=== PATIENT | female | born 1955 | race Caucasian/White ===

== ENCOUNTER 2021-10-22 19:41 | Observation (INO) | payer MEDICARE ==
[2021-10-22] MEDS ORDERED: BABY ASPIRIN 81 MG CHEW PO ONE (20:09)
[2021-10-22] MEDS ORDERED: NITRO-BID 2% UD PACKETS TOP ONE (20:10)
[2021-10-22] MEDS ORDERED: NITRO-BID 2% UD PACKETS ONE (20:15)
--- NOTE | 2021-10-22 20:25 | ERPHSYRPT ---
- History of Present Illness Time Seen by Provider: 10/22/21 19:50 Historian: patient Exam Limitations: no limitations Patient Subjective Stated Complaint: "My chest hurts." Triage Nursing Assessment: 65 y/o obese white female with PMH significant for hypothyroidims, "leaky valves," GERD, and HTN. Reported acute onset of chest pain while at rest on 10/22/21 at 1800. Pain described as left sided and dull/heavy in nature with radiation to the back between her shoulder blades. Reported associated dizziness, nausea without vomiting, and slight dyspnea. Denied any near syncopal episodes, cold sweats, or visual disturbances. Patient stated, "I just don't feel right.". Pupils 3mm bilateral. Neck supple without JVD. Symmetrical chest expansion. heart tones S1/S2 RRR without extra sounds. Lungs vesicular with adequate airflow. Abdomen obeses non-distended, non- surgical, and without peritoneal signs. No palpable organomegaly or pulsatile masses. +1 non-pitting dependent edema. Bilateral peripheral pulses +2. Physician History: Patient is a 65-year-old female presents to our ED with complaints of chest pain that started approximately 6 PM. Patient has a cardiac history. Patient states she self administered nitroglycerin sublingual at approximately 1830 and 1910. Symptoms relieved slightly. Patient's chest pain described as a dull heaviness that is constant. Pain tends to radiate towards her back between her scapula. Pain is associated with dizziness and nausea no vomiting. Symptoms are constant. Symptoms are moderate in intensity. Patient is experiencing symptoms at rest. No significant improving factors. Patient voices no other complaints or concerns at this time. Timing/Duration: today Activities at Onset: rest Quality: aching Location: substernal Chest Pain Radiation: back Severity of Pain-Max: moderate Severity of Pain-Current: mild Modifying Factors: Improves With: nothing Associated Symptoms: dizziness Prior Chest Pain/Cardiac Workup: no prior chest pain Nitro Today/Relief: 0.4 mg x 2 Aspirin Treatment Today: no aspirin today Allergies/Adverse Reactions: hydrocodone [From [facility]] Adverse Reaction (Verified 10/22/21 19:43) Home Medications: Aspirin EC 81 mg [Ecotrin 81 mg] 81 mg PO DAILY 11/23/12 [History] Levothyroxine Sodium 112 Mcg [Synthroid 112 Mcg] 88 mcg PO DAILY 11/23/12 [History] Simvastatin 20Mg [Zocor 20Mg] 20 mg PO DAILY 11/23/12 [History] Duloxetine HCl 60 mg PO DAILY 10/22/21 [History] Metoprolol Succinate 50 mg PO DAILY 10/22/21 [History] Pregabalin 500 mg PO DAILY 10/22/21 [History] Trazodone HCl 100 mg PO HS 10/22/21 [History] Hyoscyamine Sulfate 0.125 mg [Anaspaz 0.125 mg] 0.125 mg PO DAILY PRN PRN 10/23/21 [History] PANTOPRAZOLE 40 mg Tablet [Protonix 40MG Tablet] 40 mg PO DAILY 10/23/21 [History] Hx Tetanus, Diphtheria Vaccination/Date Given: No Hx Influenza Vaccination/Date Given: (fall 2011) Hx Pneumococcal Vaccination/Date Given: No Travel Risk - International Travel Have you traveled outside of the country in past 3 weeks: No - Coronavirus Screening Are you exhibiting any of the following symptoms?: No Close contact with a COVID-19 positive Pt in past 14-21 Days: No - Vaccine Status Have you recieved a Covid-19 vaccination: Yes [employer]: [employer] - Vaccination Dates Date of 2cond Vaccination (if applicable): 12/20/20 - Review of Systems Constitutional: No Symptoms, No Fever, No Chills Eyes: No Symptoms Ears, Nose, & Throat: No Symptoms Respiratory: No Symptoms, No Cough, No Dyspnea Cardiac: No Symptoms, No Chest Pain, No Edema, No Syncope Abdominal/Gastrointestinal: No Symptoms, No Abdominal Pain, No Nausea, No Vomiting, No Diarrhea Genitourinary Symptoms: No Symptoms, No Dysuria Musculoskeletal: No Symptoms, No Back Pain, No Neck Pain Skin: No Symptoms, No Rash Neurological: No Symptoms, No Dizziness, No Focal Weakness, No Sensory Changes Psychological: No Symptoms Endocrine: No Symptoms Hematologic/Lymphatic: No Symptoms Immunological/Allergic: No Symptoms All Other Systems: Reviewed and Negative - Past Medical History Pertinent Past Medical History: No Neurological History: No Pertinent History ENT History: No Pertinent History Cardiac History: Hypertension, Other Respiratory History: No Pertinent History Endocrine Medical History: Hypothyroidism Musculoskeletal History: Other GI Medical History: GERD, Gallbladder Disease History: No Pertinent History Psycho-Social History: Anxiety, Depression Female Reproductive Disorders: Fibroids Other Medical History: spinal stenosis,cardiac leaky valve - Past Surgical History Past Surgical History: Yes Neuro Surgical History: No Pertinent History Cardiac: Cardiac Catheterization Respiratory: No Pertinent History Gastrointestinal: Cholecystectomy Genitourinary: No Pertinent History Musculoskeletal: Orthopedic Surgery Female Surgical History: Hysterectomy, Tubal Ligation Other Surgical History: back surgery 2012-states S1-S5 vertebrae has "nuts and bolts", EGD,Barium swallow,test on panreas in [facility], [facility] spinal stenosi s,hiatel hernia,leaky heart valve and graves disease, colonoscopy 2013 - Social History Smoking Status: Never smoker Exposure to second hand smoke: No Drug Use: none Patient Lives Alone: Yes - Female History Hx Now: No - Nursing Vital Signs Nursing Vital Signs: Initial Vital Signs Temperature 98.7 F 10/22/21 19:41 Pulse Rate 68 10/22/21 19:41 Respiratory Rate 20 10/22/21 19:41 Blood Pressure 148/76 10/22/21 19:41 O2 Sat by Pulse Oximetry 97 10/22/21 19:41 Pain Scale Pain Intensity 2 - Physical Exam General Appearance: no apparent distress, alert Eye Exam: PERRL/EOMI, eyes nml inspection Ears, Nose, Throat Exam: normal ENT inspection, TMs normal, pharynx normal, moist mucous membranes Neck Exam: normal inspection, non-tender, supple, full range of motion Respiratory Exam: normal breath sounds, lungs clear, airway intact, No respiratory distress Cardiovascular Exam: regular rate/rhythm, normal heart sounds, normal peripheral pulses Gastrointestinal/Abdomen Exam: soft, No tenderness, No mass Back Exam: normal inspection, normal range of motion, No CVA tenderness, No vertebral tenderness Extremity Exam: normal inspection, normal range of motion Neurologic Exam: alert, oriented x 3, cooperative, normal mood/affect, sensation nml, No motor deficits Skin Exam: normal color, warm, dry Lymphatic Exam: No adenopathy SpO2 Interpretation: normal SpO2: 98 O2 Delivery: Room Air - Course Nursing assessment & vital signs reviewed: Yes EKG Interpreted by Me: RATE (68), Sinus Rhythm, NORMAL AXIS, NORMAL INTERVALS - Radiology Exams Chest X-ray Interpretation: Interpreted by me (Clear lung calderon. Normal cardiac silhouette. Intact bony thorax) Ordered Tests: Active Orders 24 hr Category Date Time Status Bedrest with BRP/BSC ROUTINE Activity 10/23/21 01:03 Active [place] Singer STAT Care 10/22/21 20:08 Completed Code Status Order ROUTINE Care 10/23/21 01:03 Active EKG-ER Only STAT Care 10/22/21 20:07 Completed IV Care Q6H Care 10/23/21 01:03 Active IV Insertion STAT Care 10/22/21 20:07 Completed Implement Chest Pain Pathway ROUTINE Care 10/23/21 01:03 Active Pulse Oximetry (ED) STAT Care 10/22/21 20:07 Completed Nolan Kulkarni, Apply ROUTINE Care 10/23/21 01:03 Active Telemetry q6h Care 10/23/21 01:03 Active Weight,Daily 0600 Care 10/23/21 01:03 Active CHEST 1 VIEW (PORTABLE) Stat Exams 10/22/21 20:13 Taken CBC W DIFF Stat Lab 10/22/21 20:07 Completed CMP Stat Lab 10/22/21 20:07 Completed LIPID PROFILE AM.LAB Lab 10/23/21 05:20 Received NT PRO BNP Stat Lab 10/22/21 20:07 Completed TROPONIN Q3H Lab 10/22/21 20:07 Completed TROPONIN Q3H Lab 10/22/21 22:45 Completed TROPONIN Q3H Lab 10/23/21 02:45 Completed TROPONIN Q3H Lab 10/23/21 05:20 Completed TROPONIN Q3H Lab 10/23/21 08:15 Ordered Transfer Order Routine Transfer 10/23/21 Completed Medication Summary Generic Name Dose Route Start Last Admin Trade Name Freq PRN Reason Stop Dose Admin Acetaminophen 650 mg 10/23/21 01:03 10/23/21 01:36 Acetaminophen 325 Mg Tablet PO 11/22/21 01:02 650 mg Q4H PRN PRN Administration PAIN AND/OR FEVER Al Hydrox/Mg Hydrox/Simethicone 30 ml 10/23/21 01:03 Mag Hydrox/Al Hydrox/Simeth 30 Ml Udcup PO 11/22/21 01:02 Q4H PRN PRN INDIGESTION Magnesium Hydroxide 30 - 60 ml 10/23/21 01:03 Magnesium Hydroxide 30 Ml Udcup PO 11/22/21 01:02 QDP PRN CONSTIPATION Ondansetron HCl 4 mg 10/23/21 01:03 Ondansetron Hcl 4 Mg/2 Ml Vial IV 11/22/21 01:02 Q4H PRN PRN NAUSEA/VOMITING Senna/Docusate Sodium 2 udtab 10/23/21 01:03 Senna/Docusate Sodium 1 Udtab Tablet PO 11/22/21 01:02 BID PRN PRN CONSTIPATION Discontinued Medications Generic Name Dose Route Start Last Admin Trade Name Collinq PRN Reason Stop Dose Admin Acetaminophen 975 mg 10/22/21 23:11 10/22/21 23:16 Acetaminophen 325 Mg Tablet PO 10/22/21 23:12 975 mg STAT STA Administration Acetaminophen Confirm 10/22/21 23:16 Acetaminophen 325 Mg Tablet Administered 10/22/21 23:17 Dose 975 mg .ROUTE .STK-MED ONE Aspirin 324 mg 10/22/21 20:09 10/22/21 20:12 Aspirin 81 Mg Tab.Chew PO 10/22/21 20:10 324 mg STAT ONE Administration Nitroglycerin 1 gm 10/22/21 20:10 10/22/21 20:16 Nitroglycerin 1 Gm Packet TOP 10/22/21 20:11 1 gm STAT ONE Administration Nitroglycerin Confirm 10/22/21 20:15 Nitroglycerin 1 Gm Packet Administered 10/22/21 20:16 Dose 1 gm .ROUTE .STK-MED ONE Lab/Rad Data: Laboratory Result Diagrams 10/22/21 20:07 10/22/21 20:07 Laboratory Results 10/22/21 10/22/21 10/22/21 Range/Units 22:52 22:45 20:07 WBC (4.0-10.5) K/mm3 RBC (4.1-5.4) M/mm3 Hgb (12.0-16.0) gm/dl Hct (35-47) % MCV (78-100) fl MCH (26-32) pg MCHC (32-36) g/dl RDW (11.5-14.0) % Plt Count (150-450) K/mm3 MPV (7.5-11.0) fl Gran % (36.0-66.0) % Eos # (Auto) (0-0.5) Absolute Lymphs (auto) (1.0-4.6) Absolute Monos (auto) (0.0-1.3) Lymphocytes % (24.0-44.0) % Monocytes % (0.0-12.0) % Eosinophils % (0.00-5.0) % Basophils % (0.0-0.4) % Absolute Granulocytes (1.4-6.9) Basophils # (0-0.4) Sodium (137-145) mmol/L Potassium (3.5-5.1) mmol/L Chloride (98-107) mmol/L Carbon Dioxide (22-30) mmol/L Anion Gap (5-15) MEQ/L BUN (7-17) mg/dL Creatinine (0.52-1.04) mg/dL Estimated GFR ML/MIN Glucose (74-106) mg/dL Calcium (8.4-10.2) mg/dL Total Bilirubin (0.2-1.3) mg/dL AST (14-36) U/L ALT (0-35) U/L Alkaline Phosphatase (38-126) U/L Troponin I < 0.012 < 0.012 (0.000-0.034) ng/mL NT-Pro-B Natriuret Pep (0-900) pg/mL Serum Total Protein (6.3-8.2) g/dL Albumin (3.5-5.0) g/dL Influenza Type A Ag NEGATIVE (NEGATIVE) Influenza Type B Ag NEGATIVE (NEGATIVE) RSV (PCR) NEGATIVE (Negative) SARS-CoV-2 (PCR) NEGATIVE (NEGATIVE) 10/22/21 10/22/21 Range/Units 20:07 20:07 WBC 7.8 (4.0-10.5) K/mm3 RBC 3.84 L (4.1-5.4) M/mm3 Hgb 12.1 (12.0-16.0) gm/dl Hct 36.9 (35-47) % MCV 96.1 (78-100) fl MCH 31.5 (26-32) pg MCHC 32.8 (32-36) g/dl RDW 14.0 (11.5-14.0) % Plt Count 205 (150-450) K/mm3 MPV 12.7 H (7.5-11.0) fl Gran % 47.2 (36.0-66.0) % Eos # (Auto) 0.17 (0-0.5) Absolute Lymphs (auto) 3.28 (1.0-4.6) Absolute Monos (auto) 0.61 (0.0-1.3) Lymphocytes % 42.2 (24.0-44.0) % Monocytes % 7.9 (0.0-12.0) % Eosinophils % 2.2 (0.00-5.0) % Basophils % 0.5 (0.0-0.4) % Absolute Granulocytes 3.67 (1.4-6.9) Basophils # 0.04 (0-0.4) Sodium 139 (137-145) mmol/L Potassium 3.5 (3.5-5.1) mmol/L Chloride 103 (98-107) mmol/L Carbon Dioxide 24 (22-30) mmol/L Anion Gap 16.3 H (5-15) MEQ/L BUN 15 (7-17) mg/dL Creatinine 0.81 (0.52-1.04) mg/dL Estimated GFR > 60.0 ML/MIN Glucose 122 H (74-106) mg/dL Calcium 9.3 (8.4-10.2) mg/dL Total Bilirubin 0.40 (0.2-1.3) mg/dL AST 21 (14-36) U/L ALT 17 (0-35) U/L Alkaline Phosphatase 94 (38-126) U/L Troponin I (0.000-0.034) ng/mL NT-Pro-B Natriuret Pep 209 (0-900) pg/mL Serum Total Protein 6.7 (6.3-8.2) g/dL Albumin 4.2 (3.5-5.0) g/dL Influenza Type A Ag (NEGATIVE) Influenza Type B Ag (NEGATIVE) RSV (PCR) (Negative) SARS-CoV-2 (PCR) (NEGATIVE) - Progress Progress: improved Air Movement: good Progress Note: Patient reassessed. She is well. We will admit patient for cardiac rule out. Case discussed with Dr. García who accepts admission to observation. Plan of care discussed with patient. She agrees to admission [facility] for further evaluation and treatment. Portions of this note were created with voice recognition technology. There may be grammatical, spelling, punctuation or sound alike errors 10/23/21 06:53 Blood Culture(s) Obtained: No Antibiotics given: No Discussed with DrSruthi: Sasha Counseled pt/family regarding: lab results, diagnosis, rad results - Departure Departure Disposition: Observation Clinical Impression: ACS (acute coronary syndrome), Chest pain, Abnormal ECG Condition: Stable Critical Care Time: No
[2021-10-22 20:27] LABS: Absolute Neutrophil Ct (ANC) 3.67 (1.4-6.9); Basophil (Absolute #) 0.04 (0-0.4); Eosinophil % 2.2 % (0.00-5.0); Eosinophil (Absolute #) 0.17 (0-0.5); Hematocrit 36.9 % (35-47); Hemoglobin 12.1 gm/dl (12.0-16.0); Lymphocyte (Absolute #) 3.28 (1.0-4.6); Lymphocytes % 42.2 % (24.0-44.0); Mean Cell Volume 96.1 fl (78-100); Mean Corpuscular Hemoglobin 31.5 pg (26-32); Mean Corpuscular Hgb Concent. 32.8 g/dl (32-36); Mean Platelet Volume 12.7 fl (7.5-11.0); Monocyte (Absolute #) 0.61 (0.0-1.3); Monocytes % 7.9 % (0.0-12.0); Neutrophil % 47.2 % (36.0-66.0); Platelet Count 205 K/mm3 (150-450); Red Blood Count 3.84 M/mm3 (4.1-5.4); White Blood Count 7.8 K/mm3 (4.0-10.5)
[2021-10-22 20:46] LABS: ALBUMIN 4.2 g/dL (3.5-5.0); ALKALINE PHOSPHATASE 94 U/L (38-126); ANION GAP 16.3 MEQ/L (5-15); BLOOD UREA NITROGEN 15 mg/dL (7-17); CHLORIDE 103 mmol/L (98-107); Calcium 9.3 mg/dL (8.4-10.2); Carbon Dioxide 24 mmol/L (22-30); Creatinine 1 0.81 mg/dL (0.52-1.04); EST GLOMERULAR FILTRATION RATE > 60.0 ML/MIN; Glucose 122 mg/dL (74-106); NT PRO BNP 209 pg/mL (0-900); Potassium 3.5 mmol/L (3.5-5.1); SGOT/AST 21 U/L (14-36); SGPT/ALT 17 U/L (0-35); SODIUM 139 mmol/L (137-145); Total Protein 6.7 g/dL (6.3-8.2)
[2021-10-22] MEDS ORDERED: TYLENOL 325 MG PO STA (23:11)
[2021-10-22] MEDS ORDERED: TYLENOL 325 MG ONE (23:16)
[2021-10-22 23:31] LABS: INFLUENZA A NEGATIVE (NEGATIVE); INFLUENZA B NEGATIVE (NEGATIVE); RESPIRATORY SYNCTIAL VIRUS NEGATIVE (Negative); SARS-CoV-2 Xpert Express NEGATIVE (NEGATIVE)
[2021-10-23] MEDS ORDERED: Senokot-S Tablet PO PRN (01:03)
[2021-10-23] MEDS ORDERED: TYLENOL 325 MG PO PRN (01:03)
[2021-10-23] MEDS ORDERED: Zofran 4 MG/2 ML VIAL IV PRN (01:03)
[2021-10-23] MEDS ORDERED: MILK OF MAGNESIA 30 ML PO PRN (01:03)
[2021-10-23] MEDS ORDERED: MAALOX ES 30 ML UNIT DOSE PO PRN (01:03)
[2021-10-23 06:50] LABS: Risk Ratio 3.2
--- NOTE | 2021-10-23 08:46 | XRAY ---
Indication: Chest pain. Comparison: May 19, 2013. Portable chest remains clear. Heart not enlarged. Bony thorax intact again with mild osteopenia, minimal degenerative changes, and lower cervical fusion hardware. No new/acute findings.
--- NOTE | 2021-10-23 09:14 | PCM.SSS ---
History of Present Illness - Chief Complaint Chief Complaint: chest pain History of Present Illness: is a 65 year old female with no local physician, she receives primary care from [facility] and follows with Dr Olive Viramontes for "2 leaky heart valves". She developed acute chest pain, substernal and dull radiating to her back at rest last night, she had dizziness and nausea associated with this pain, there was improvement with nitro. she denies history of [place], no stents and states her last stress test was "a long time ago". She has no chest pain on evaluation this morning, was pain free overnight with a nitro patch which has been removed at this point. She has a history of hyperlipidemia and htn. lifelong nonsmoker. - Review of Systems Constitutional: No Fever, No Chills Respiratory: No Cough, No Short Of Breath Cardiac: Chest Pain Abdominal/Gastrointestinal: No Abdominal Pain, No Nausea, No Vomiting, No Diarrhea Genitourinary Symptoms: No Dysuria Skin: No Rash All Other Systems: Reviewed and Negative Medications & Allergies Home Medications: Home Medication List Aspirin EC 81 mg [Ecotrin 81 mg] 81 mg PO DAILY 11/23/12 [History Confirmed 10/23/21] Levothyroxine Sodium 112 Mcg [Synthroid 112 Mcg] 88 mcg PO DAILY 11/23/12 [History Confirmed 10/23/21] Simvastatin 20Mg [Zocor 20Mg] 20 mg PO DAILY 11/23/12 [History Confirmed 10/23/21] Duloxetine HCl 60 mg PO DAILY 10/22/21 [History Confirmed 10/23/21] Metoprolol Succinate 50 mg PO DAILY 10/22/21 [History Confirmed 10/23/21] Pregabalin 500 mg PO DAILY 10/22/21 [History Confirmed 10/23/21] Trazodone HCl 100 mg PO HS 10/22/21 [History Confirmed 10/23/21] Hyoscyamine Sulfate 0.125 mg [Anaspaz 0.125 mg] 0.125 mg PO DAILY PRN PRN 10/23/21 [History Confirmed 10/23/21] PANTOPRAZOLE 40 mg Tablet [Protonix 40MG Tablet] 40 mg PO DAILY 10/23/21 [History Confirmed 10/23/21] Allergies/Adverse Reactions: Allergies Allergy/AdvReac Type Severity Reaction Status Date / Time hydrocodone [From [place]] AdvReac Verified 10/22/21 19:43 - Past Medical History Past Medical History: No Neurological History: No Pertinent History ENT History: No Pertinent History Cardiac History: Hypertension, Other Respiratory History: No Pertinent History Endocrine Medical History: Hypothyroidism Musculoskelatal History: Other GI Medical History: GERD, Gallbladder Disease History: No Pertinent History Pyscho-Social History: Anxiety, Depression Reproductive Disorders: Fibroids Comment: spinal stenosis,cardiac leaky valve - Female History Are you now?: No - Past Surgical History Past Surgical History: Yes Neuro Surgical History: No Pertinent History Cardiac History: Cardiac Catheterization Respiratory Surgery: No Pertinent History GI Surgical History: Cholecystectomy Genitourinary Surgical Hx: No Pertinent History Musculskeletal Surgical Hx: Orthopedic Surgery Female Surgical History: Hysterectomy, Tubal Ligation Other Surgical History: back surgery 2012-states S1-S5 vertebrae has "nuts and bolts", EGD,Barium swallow,test on panreas in [facility], states spinal stenosis,hiatel hernia,leaky heart valve and graves disease, colonoscopy 2013 - Social History Smoking Status: Never smoker How long have you smoked: 2007 Exposure to second hand smoke: No Alcohol: None Drug Use: none - Physical Exam Vital Signs: Vital Signs - 24 hr Temp Pulse Pulse Resp BP Pulse Ox 10/23/21 07:41 98.4 F 56 L 16 115/56 94 L 10/23/21 06:55 98 10/23/21 04:00 97.7 F 62 16 109/58 96 10/23/21 01:07 97.6 F 60 12 117/61 95 10/23/21 00:05 61 12 107/69 94 L 10/22/21 23:00 67 16 112/59 96 10/22/21 22:05 81 16 127/90 94 L 10/22/21 21:00 66 14 132/67 97 10/22/21 20:41 65 12 134/71 95 10/22/21 20:07 98 10/22/21 19:41 98.7 F 68 67 20 148/76 97 General Appearance: no apparent distress, alert Neurologic Exam: alert, oriented x 3, cooperative, normal mood/affect, nml cerebellar function, nml station & gait, sensation nml, No motor deficits Respiratory Exam: normal breath sounds, lungs clear, No respiratory distress Cardiovascular Exam: regular rate/rhythm, normal heart sounds, normal peripheral pulses Gastrointestinal/Abdomen Exam: soft, normal bowel sounds, No tenderness, No mass Extremity Exam: normal inspection, normal range of motion, pelvis stable Skin Exam: normal color, warm, dry, No rash Results - Labs Lab/Micro Results: Lab Results-Last 24 Hours 10/22/21 10/22/21 10/22/21 Range/Units 20:07 20:07 20:07 WBC 7.8 (4.0-10.5) K/mm3 RBC 3.84 L (4.1-5.4) M/mm3 Hgb 12.1 (12.0-16.0) gm/dl Hct 36.9 (35-47) % MCV 96.1 (78-100) fl MCH 31.5 (26-32) pg MCHC 32.8 (32-36) g/dl RDW 14.0 (11.5-14.0) % Plt Count 205 (150-450) K/mm3 MPV 12.7 H (7.5-11.0) fl Gran % 47.2 (36.0-66.0) % Eos # (Auto) 0.17 (0-0.5) Absolute Lymphs (auto) 3.28 (1.0-4.6) Absolute Monos (auto) 0.61 (0.0-1.3) Lymphocytes % 42.2 (24.0-44.0) % Monocytes % 7.9 (0.0-12.0) % Eosinophils % 2.2 (0.00-5.0) % Basophils % 0.5 (0.0-0.4) % Absolute Granulocytes 3.67 (1.4-6.9) Basophils # 0.04 (0-0.4) Sodium 139 (137-145) mmol/L Potassium 3.5 (3.5-5.1) mmol/L Chloride 103 (98-107) mmol/L Carbon Dioxide 24 (22-30) mmol/L Anion Gap 16.3 H (5-15) MEQ/L BUN 15 (7-17) mg/dL Creatinine 0.81 (0.52-1.04) mg/dL Estimated GFR > 60.0 ML/MIN Glucose 122 H (74-106) mg/dL Calcium 9.3 (8.4-10.2) mg/dL Total Bilirubin 0.40 (0.2-1.3) mg/dL AST 21 (14-36) U/L ALT 17 (0-35) U/L Alkaline Phosphatase 94 (38-126) U/L Troponin I < 0.012 (0.000-0.034) ng/mL NT-Pro-B Natriuret Pep 209 (0-900) pg/mL Serum Total Protein 6.7 (6.3-8.2) g/dL Albumin 4.2 (3.5-5.0) g/dL Triglycerides (30-150) mg/dL Cholesterol (50-200) mg/dL LDL Cholesterol (30-100) mg/dL HDL Cholesterol (40-60) mg/dL Heart Disease Risk Ratio Influenza Type A Ag (NEGATIVE) Influenza Type B Ag (NEGATIVE) RSV (PCR) (Negative) SARS-CoV-2 (PCR) (NEGATIVE) 10/22/21 10/22/21 10/23/21 Range/Units 22:45 22:52 02:45 WBC (4.0-10.5) K/mm3 RBC (4.1-5.4) M/mm3 Hgb (12.0-16.0) gm/dl Hct (35-47) % MCV (78-100) fl MCH (26-32) pg MCHC (32-36) g/dl RDW (11.5-14.0) % Plt Count (150-450) K/mm3 MPV (7.5-11.0) fl Gran % (36.0-66.0) % Eos # (Auto) (0-0.5) Absolute Lymphs (auto) (1.0-4.6) Absolute Monos (auto) (0.0-1.3) Lymphocytes % (24.0-44.0) % Monocytes % (0.0-12.0) % Eosinophils % (0.00-5.0) % Basophils % (0.0-0.4) % Absolute Granulocytes (1.4-6.9) Basophils # (0-0.4) Sodium (137-145) mmol/L Potassium (3.5-5.1) mmol/L Chloride (98-107) mmol/L Carbon Dioxide (22-30) mmol/L Anion Gap (5-15) MEQ/L BUN (7-17) mg/dL Creatinine (0.52-1.04) mg/dL Estimated GFR ML/MIN Glucose (74-106) mg/dL Calcium (8.4-10.2) mg/dL Total Bilirubin (0.2-1.3) mg/dL AST (14-36) U/L ALT (0-35) U/L Alkaline Phosphatase (38-126) U/L Troponin I < 0.012 < 0.012 (0.000-0.034) ng/mL NT-Pro-B Natriuret Pep (0-900) pg/mL Serum Total Protein (6.3-8.2) g/dL Albumin (3.5-5.0) g/dL Triglycerides (30-150) mg/dL Cholesterol (50-200) mg/dL LDL Cholesterol (30-100) mg/dL HDL Cholesterol (40-60) mg/dL Heart Disease Risk Ratio Influenza Type A Ag NEGATIVE (NEGATIVE) Influenza Type B Ag NEGATIVE (NEGATIVE) RSV (PCR) NEGATIVE (Negative) SARS-CoV-2 (PCR) NEGATIVE (NEGATIVE) 10/23/21 10/23/21 10/23/21 Range/Units 05:20 05:20 08:11 WBC (4.0-10.5) K/mm3 RBC (4.1-5.4) M/mm3 Hgb (12.0-16.0) gm/dl Hct (35-47) % MCV (78-100) fl MCH (26-32) pg MCHC (32-36) g/dl RDW (11.5-14.0) % Plt Count (150-450) K/mm3 MPV (7.5-11.0) fl Gran % (36.0-66.0) % Eos # (Auto) (0-0.5) Absolute Lymphs (auto) (1.0-4.6) Absolute Monos (auto) (0.0-1.3) Lymphocytes % (24.0-44.0) % Monocytes % (0.0-12.0) % Eosinophils % (0.00-5.0) % Basophils % (0.0-0.4) % Absolute Granulocytes (1.4-6.9) Basophils # (0-0.4) Sodium (137-145) mmol/L Potassium (3.5-5.1) mmol/L Chloride (98-107) mmol/L Carbon Dioxide (22-30) mmol/L Anion Gap (5-15) MEQ/L BUN (7-17) mg/dL Creatinine (0.52-1.04) mg/dL Estimated GFR ML/MIN Glucose (74-106) mg/dL Calcium (8.4-10.2) mg/dL Total Bilirubin (0.2-1.3) mg/dL AST (14-36) U/L ALT (0-35) U/L Alkaline Phosphatase (38-126) U/L Troponin I < 0.012 < 0.012 (0.000-0.034) ng/mL NT-Pro-B Natriuret Pep (0-900) pg/mL Serum Total Protein (6.3-8.2) g/dL Albumin (3.5-5.0) g/dL Triglycerides 103 (30-150) mg/dL Cholesterol 133 (50-200) mg/dL LDL Cholesterol 60 (30-100) mg/dL HDL Cholesterol 42 (40-60) mg/dL Heart Disease Risk Ratio 3.2 Influenza Type A Ag (NEGATIVE) Influenza Type B Ag (NEGATIVE) RSV (PCR) (Negative) SARS-CoV-2 (PCR) (NEGATIVE) - Radiology Impressions Radiology Exams & Impressions: Radiology Procedures Category Date Time Status CHEST 1 VIEW (PORTABLE) Stat Exams 10/22/21 20:13 Completed - Other Procedures and Tests Respiratory Therapy 10/24/21 05:00 EKG ROUTINE 10/25/21 05:00 EKG ROUTINE Assessment/Plan (1) Chest pain Current Visit: Yes Status: Acute Assessment & Plan: patient has some risk factors for CAD and history is concerning for angina. [place] has been ruled out, not a good historian but has had a previous cath so will consult her casino assistant manager at [facility] to help with history and if no immediate intervention consider lexiscan cardiolite stress test and discharge if ok with cardiology. continue aspirin and statin at this time, patient is on metoprolol as well so currently on appropriate medical therapy. Code(s): R07.9 - CHEST PAIN, UNSPECIFIED Hospital Summary - Vitals & Intake/Output Vital Signs: Vital Signs Temperature 98.4 F 10/23/21 07:41 Pulse Rate 56 L 10/23/21 07:41 Respiratory Rate 16 10/23/21 07:41 Blood Pressure 115/56 10/23/21 07:41 O2 Sat by Pulse Oximetry 94 L 10/23/21 07:41 Intake & Output: Intake & Output 10/20/21 10/21/21 10/22/21 10/23/21 11:59 11:59 11:59 11:59 Intake Total 200 Balance 200 Weight 104 kg - Lab Result Diagrams: 10/22/21 20:07 10/22/21 20:07 Lab Results-Last 24 Hrs: Lab Results-Last 24 Hours 10/22/21 10/22/21 10/22/21 Range/Units 20:07 20:07 20:07 WBC 7.8 (4.0-10.5) K/mm3 RBC 3.84 L (4.1-5.4) M/mm3 Hgb 12.1 (12.0-16.0) gm/dl Hct 36.9 (35-47) % MCV 96.1 (78-100) fl MCH 31.5 (26-32) pg MCHC 32.8 (32-36) g/dl RDW 14.0 (11.5-14.0) % Plt Count 205 (150-450) K/mm3 MPV 12.7 H (7.5-11.0) fl Gran % 47.2 (36.0-66.0) % Eos # (Auto) 0.17 (0-0.5) Absolute Lymphs (auto) 3.28 (1.0-4.6) Absolute Monos (auto) 0.61 (0.0-1.3) Lymphocytes % 42.2 (24.0-44.0) % Monocytes % 7.9 (0.0-12.0) % Eosinophils % 2.2 (0.00-5.0) % Basophils % 0.5 (0.0-0.4) % Absolute Granulocytes 3.67 (1.4-6.9) Basophils # 0.04 (0-0.4) Sodium 139 (137-145) mmol/L Potassium 3.5 (3.5-5.1) mmol/L Chloride 103 (98-107) mmol/L Carbon Dioxide 24 (22-30) mmol/L Anion Gap 16.3 H (5-15) MEQ/L BUN 15 (7-17) mg/dL Creatinine 0.81 (0.52-1.04) mg/dL Estimated GFR > 60.0 ML/MIN Glucose 122 H (74-106) mg/dL Calcium 9.3 (8.4-10.2) mg/dL Total Bilirubin 0.40 (0.2-1.3) mg/dL AST 21 (14-36) U/L ALT 17 (0-35) U/L Alkaline Phosphatase 94 (38-126) U/L Troponin I < 0.012 (0.000-0.034) ng/mL NT-Pro-B Natriuret Pep 209 (0-900) pg/mL Serum Total Protein 6.7 (6.3-8.2) g/dL Albumin 4.2 (3.5-5.0) g/dL Triglycerides (30-150) mg/dL Cholesterol (50-200) mg/dL LDL Cholesterol (30-100) mg/dL HDL Cholesterol (40-60) mg/dL Heart Disease Risk Ratio Influenza Type A Ag (NEGATIVE) Influenza Type B Ag (NEGATIVE) RSV (PCR) (Negative) SARS-CoV-2 (PCR) (NEGATIVE) 10/22/21 10/22/21 10/23/21 Range/Units 22:45 22:52 02:45 WBC (4.0-10.5) K/mm3 RBC (4.1-5.4) M/mm3 Hgb (12.0-16.0) gm/dl Hct (35-47) % MCV (78-100) fl MCH (26-32) pg MCHC (32-36) g/dl RDW (11.5-14.0) % Plt Count (150-450) K/mm3 MPV (7.5-11.0) fl Gran % (36.0-66.0) % Eos # (Auto) (0-0.5) Absolute Lymphs (auto) (1.0-4.6) Absolute Monos (auto) (0.0-1.3) Lymphocytes % (24.0-44.0) % Monocytes % (0.0-12.0) % Eosinophils % (0.00-5.0) % Basophils % (0.0-0.4) % Absolute Granulocytes (1.4-6.9) Basophils # (0-0.4) Sodium (137-145) mmol/L Potassium (3.5-5.1) mmol/L Chloride (98-107) mmol/L Carbon Dioxide (22-30) mmol/L Anion Gap (5-15) MEQ/L BUN (7-17) mg/dL Creatinine (0.52-1.04) mg/dL Estimated GFR ML/MIN Glucose (74-106) mg/dL Calcium (8.4-10.2) mg/dL Total Bilirubin (0.2-1.3) mg/dL AST (14-36) U/L ALT (0-35) U/L Alkaline Phosphatase (38-126) U/L Troponin I < 0.012 < 0.012 (0.000-0.034) ng/mL NT-Pro-B Natriuret Pep (0-900) pg/mL Serum Total Protein (6.3-8.2) g/dL Albumin (3.5-5.0) g/dL Triglycerides (30-150) mg/dL Cholesterol (50-200) mg/dL LDL Cholesterol (30-100) mg/dL HDL Cholesterol (40-60) mg/dL Heart Disease Risk Ratio Influenza Type A Ag NEGATIVE (NEGATIVE) Influenza Type B Ag NEGATIVE (NEGATIVE) RSV (PCR) NEGATIVE (Negative) SARS-CoV-2 (PCR) NEGATIVE (NEGATIVE) 10/23/21 10/23/21 10/23/21 Range/Units 05:20 05:20 08:11 WBC (4.0-10.5) K/mm3 RBC (4.1-5.4) M/mm3 Hgb (12.0-16.0) gm/dl Hct (35-47) % MCV (78-100) fl MCH (26-32) pg MCHC (32-36) g/dl RDW (11.5-14.0) % Plt Count (150-450) K/mm3 MPV (7.5-11.0) fl Gran % (36.0-66.0) % Eos # (Auto) (0-0.5) Absolute Lymphs (auto) (1.0-4.6) Absolute Monos (auto) (0.0-1.3) Lymphocytes % (24.0-44.0) % Monocytes % (0.0-12.0) % Eosinophils % (0.00-5.0) % Basophils % (0.0-0.4) % Absolute Granulocytes (1.4-6.9) Basophils # (0-0.4) Sodium (137-145) mmol/L Potassium (3.5-5.1) mmol/L Chloride (98-107) mmol/L Carbon Dioxide (22-30) mmol/L Anion Gap (5-15) MEQ/L BUN (7-17) mg/dL Creatinine (0.52-1.04) mg/dL Estimated GFR ML/MIN Glucose (74-106) mg/dL Calcium (8.4-10.2) mg/dL Total Bilirubin (0.2-1.3) mg/dL AST (14-36) U/L ALT (0-35) U/L Alkaline Phosphatase (38-126) U/L Troponin I < 0.012 < 0.012 (0.000-0.034) ng/mL NT-Pro-B Natriuret Pep (0-900) pg/mL Serum Total Protein (6.3-8.2) g/dL Albumin (3.5-5.0) g/dL Triglycerides 103 (30-150) mg/dL Cholesterol 133 (50-200) mg/dL LDL Cholesterol 60 (30-100) mg/dL HDL Cholesterol 42 (40-60) mg/dL Heart Disease Risk Ratio 3.2 Influenza Type A Ag (NEGATIVE) Influenza Type B Ag (NEGATIVE) RSV (PCR) (Negative) SARS-CoV-2 (PCR) (NEGATIVE) - Radiology Exams Ordered Rad Exams-Entire Visit: Radiology Procedures Category Date Time Status CHEST 1 VIEW (PORTABLE) Stat Exams 10/22/21 20:13 Completed - Procedures and Test Procedures and Tests throughout Hospitalization: Therapy Orders & Screens 10/23/21 04:00 EKG ROUTINE Comment: 10/24/21 05:00 EKG ROUTINE Comment: 10/25/21 05:00 EKG ROUTINE Comment: - Discharge Disposition: Home, Self-Care Condition: Stable Prescriptions: Continue Aspirin EC 81 mg [Ecotrin 81 mg] 81 mg PO DAILY Simvastatin 20Mg [Zocor 20Mg] 20 mg PO DAILY Levothyroxine Sodium 112 Mcg [Synthroid 112 Mcg] 88 mcg PO DAILY Metoprolol Succinate 50 mg PO DAILY Trazodone HCl 100 mg PO HS Duloxetine HCl 60 mg PO DAILY Pregabalin 500 mg PO DAILY PANTOPRAZOLE 40 mg Tablet [Protonix 40MG Tablet] 40 mg PO DAILY Hyoscyamine Sulfate 0.125 mg [Anaspaz 0.125 mg] 0.125 mg PO DAILY PRN PRN PRN Reason: IBS
[2021-10-23] MEDS ORDERED: ANASPAZ 0.125 MG PO PRN (10:15)
[2021-10-23] MEDS ORDERED: Lyrica 25 MG PO SCH (11:00)
[2021-10-23] MEDS ORDERED: ZOCOR 20MG PO SCH (11:00)
[2021-10-23] MEDS ORDERED: LYRICA 100MG PO SCH (11:00)
[2021-10-23] MEDS ORDERED: Cymbalta 30 MG Capsule PO SCH (11:00)
[2021-10-23] MEDS ORDERED: ECOTRIN 81 MG PO SCH (11:00)
[2021-10-23] MEDS ORDERED: Protonix 40MG Tablet PO SCH (11:00)
[2021-10-23] MEDS ORDERED: Toprol Xl 50 MG PO SCH (11:00)
[2021-10-23] MEDS ORDERED: SYNTHROID 88 MCG PO SCH (11:00)
[2021-10-23 15:47] VITALS: BP 146/73; PULSE 62; O2SAT 99
--- NOTE | 2021-10-23 16:10 | PCM.DCORD ---
- Discharge Disposition: Home, Self-Care Condition: Stable Prescriptions: New Nitroglycerin 0.4 mg SL Q5MIN PRN MR X 3 PRN #25 PRN Reason: Chest Pain Continue Aspirin EC 81 mg [Ecotrin 81 mg] 81 mg PO DAILY Simvastatin 20Mg [Zocor 20Mg] 20 mg PO DAILY Levothyroxine Sodium 112 Mcg [Synthroid 112 Mcg] 88 mcg PO DAILY Metoprolol Succinate 50 mg PO DAILY Trazodone HCl 100 mg PO HS Duloxetine HCl 60 mg PO DAILY Pregabalin 500 mg PO DAILY PANTOPRAZOLE 40 mg Tablet [Protonix 40MG Tablet] 40 mg PO DAILY Hyoscyamine Sulfate 0.125 mg [Anaspaz 0.125 mg] 0.125 mg PO DAILY PRN PRN PRN Reason: IBS Follow up with: LINA SNOW [CONSULTING PHYSICIAN] -
[2021-10-23] MEDS ORDERED: DESYREL 50 MG PO SCH (22:00)
[2021-10-23] MEDS ORDERED: NON-FORMULARY ITEM (Trazodone Hcl [Trazodone Hcl] 100 MG Tablet) PO SCH (22:00)
[2021-10-24] MEDS ORDERED: PREGABALIN 225 MG PO SCH (10:00)
[2021-10-24] MEDS ORDERED: SYNTHROID 112 MCG PO SCH (10:00)
[2021-10-24] MEDS ORDERED: NON-FORMULARY ITEM (Duloxetine Hcl [Duloxetine Hcl] 60 MG Capsule.Dr) PO SCH (10:00)
== END 2021-10-23 16:46 | disposition home or self-care (01) ==
LOC: ED 19:41 → MED SURG 10-23 00:55
PROVIDERS: ADMIT Family Medicine; ATTEND Family Medicine
DX: R07.9 Chest pain, unspecified (principal); I10 Essential (primary) hypertension; E78.5 Hyperlipidemia, unspecified; E03.9 Hypothyroidism, unspecified; Z79.899 Other long term (current) drug therapy; Z20.828 Contact with and (suspected) exposure to other viral communicable diseases
CPT/HCPCS: 0241U; 36000; 36415; 71045; 80053; 80061; 83721; 83880; 84484; 85025; 93005; 93041; 93268; 94760; 99285; G0378; A9270-GY

== ENCOUNTER 2024-04-14 11:23 | Day surgery (SDC) | payer MEDICARE ==
[2024-04-14] MEDS ORDERED: Xylocaine-Mpf 2% 5 Ml Vial IJ ONE (11:24)
[2024-04-14] MEDS ORDERED: Depo-Medrol 40 MG/ML IM ONE (11:24)
[2024-04-14] MEDS ORDERED: DIPRIVAN 200 MG/20 ML IV ONE (13:21)
[2024-04-14] MEDS ORDERED: Lactated Ringers 1,000 ML IV ONE (13:25)
--- NOTE | 2024-04-14 13:50 | XRAY ---
Indication: Bilateral L4-S1 MBB. Intraoperative fluoroscopy provided for 12 seconds. Single digital spot image submitted for interpretation demonstrates posterior needle tips projecting over the expected left and right L4-S1 nerve roots. Correlate with intraoperative findings/report. Incidental bilateral L3-L5 facet screws and L4-L5 laminectomy.
--- NOTE | 2024-04-14 14:10 | XRAY ---
12 seconds of fluoroscopy was used in surgery for a bilateral L4-S1 MBB.
== END 2024-04-14 13:50 | disposition home or self-care (01) ==
LOC: SDC-PAIN 11:23
PROVIDERS: ATTEND Psychiatry & Neurology Pain Medicine
DX: M47.816 Spondylosis without myelopathy or radiculopathy, lumbar region (principal)
CPT/HCPCS: 64493; 64494; 72020; 77002; J2704

== ENCOUNTER 2024-05-11 13:30 | Day surgery (SDC) | payer MEDICARE ==
[2024-05-11] MEDS ORDERED: Depo-Medrol 40 MG/ML IM ONE (13:31)
[2024-05-11] MEDS ORDERED: BUPIVACAINE 0.5% VIAL IJ ONE (13:31)
[2024-05-11] MEDS ORDERED: Lactated Ringers 1,000 ML IV ONE (14:38)
[2024-05-11] MEDS ORDERED: DIPRIVAN 200 MG/20 ML IV ONE (14:56)
--- NOTE | 2024-05-11 17:38 | XRAY ---
Indication: Bilateral L4-S1 MBB. Intraoperative fluoroscopy provided for 10 seconds. Single digital spot image submitted for interpretation demonstrates posterior needle tips projecting over the expected left and right L4-S1 nerve roots. Correlate with intraoperative findings/report. Incidental bilateral L3-L5 facet screws and L4-L5 laminectomy.
--- NOTE | 2024-05-11 17:44 | XRAY ---
10 seconds of fluoroscopy was used in surgery for a bilateral L4-S1 MBB.
== END 2024-05-11 15:20 | disposition home or self-care (01) ==
LOC: SDC-PAIN 13:30
PROVIDERS: ATTEND Psychiatry & Neurology Pain Medicine
DX: M47.816 Spondylosis without myelopathy or radiculopathy, lumbar region (principal)
CPT/HCPCS: 64493; 64494; 72020; 77002; J2704

== ENCOUNTER 2024-05-25 06:51 | Day surgery (SDC) | payer MEDICARE ==
[2024-05-25] MEDS ORDERED: Depo-Medrol 40 MG/ML IM ONE (06:52)
[2024-05-25] MEDS ORDERED: LIDOCAINE HCL 1% 50 MG/5 ML VL PF IJ ONE (06:52)
[2024-05-25] MEDS ORDERED: BUPIVACAINE 0.5% VIAL IJ ONE (06:52)
[2024-05-25] MEDS ORDERED: DIPRIVAN 200 MG/20 ML IV ONE (07:56)
[2024-05-25] MEDS ORDERED: Lactated Ringers 1,000 ML IV ONE (09:23)
--- NOTE | 2024-05-25 19:58 | XRAY ---
Indication: Right L4-S1 RFA Intraoperative fluoroscopy provided for 26 seconds. 3 digital spot image submitted for interpretation demonstrates posterior needle tips projecting over the expected right L4-S1 nerve roots. Correlate with intraoperative findings/report. Incidental bilateral L3-S1 facet screws.
--- NOTE | 2024-05-25 20:20 | XRAY ---
26 seconds of fluoroscopy was used in surgery for a right L4-S1 RFA.
== END 2024-05-25 08:35 ==
LOC: SDC-PAIN 06:51
PROVIDERS: ATTEND Psychiatry & Neurology Pain Medicine
DX: M47.816 Spondylosis without myelopathy or radiculopathy, lumbar region (principal)
CPT/HCPCS: 64635; 64636; 72100; 77002; J2001; J2704

== ENCOUNTER 2024-06-01 06:48 | Day surgery (SDC) | payer MEDICARE ==
[2024-06-01] MEDS ORDERED: Depo-Medrol 40 MG/ML IM ONE (06:49)
[2024-06-01] MEDS ORDERED: LIDOCAINE HCL 1% AMPUL 5 ML IJ ONE (06:49)
[2024-06-01] MEDS ORDERED: BUPIVACAINE 0.5% VIAL IJ ONE (06:49)
[2024-06-01] MEDS ORDERED: DIPRIVAN 200 MG/20 ML IV ONE (08:17)
[2024-06-01] MEDS ORDERED: Lactated Ringers 1,000 ML IV ONE (09:53)
--- NOTE | 2024-06-01 10:47 | XRAY ---
Indication: Left L4-S1 RFA. Intraoperative fluoroscopy provided for 21 seconds. 4 digital spot images submitted for interpretation demonstrates posterior needle tips projecting over the expected left L4-S1 nerve root. Correlate with intraoperative findings/report. Incidental bilateral L3-S1 facet screws.
--- NOTE | 2024-06-01 13:08 | XRAY ---
21 seconds of fluoroscopy was used in surgery for a left L4-S1 RFA.
== END 2024-06-01 08:50 | disposition home or self-care (01) ==
LOC: SDC-PAIN 06:48
PROVIDERS: ATTEND Psychiatry & Neurology Pain Medicine
DX: M47.816 Spondylosis without myelopathy or radiculopathy, lumbar region (principal)
CPT/HCPCS: 64635; 64636; 72100; 77002; J2704

== ENCOUNTER 2024-07-06 14:12 | Day surgery (SDC) | payer MEDICARE ==
[2024-07-06] MEDS ORDERED: BUPIVACAINE 0.5% VIAL IJ ONE (14:13)
[2024-07-06] MEDS ORDERED: LIDOCAINE HCL 1% AMPUL 5 ML IJ ONE (14:13)
[2024-07-06] MEDS ORDERED: Decadron 4 MG INJ IV ONE (14:13)
[2024-07-06] MEDS ORDERED: Depo-Medrol 40 MG/ML IM ONE (14:13)
[2024-07-06] MEDS ORDERED: DIPRIVAN 200 MG/20 ML IV ONE (16:07)
--- NOTE | 2024-07-06 17:02 | XRAY ---
Indication: Right SI joint and right piriformis injection. Intraoperative fluoroscopy provided for 18 seconds. 2 digital spot image submitted for interpretation demonstrates posterior needle tips projecting over right SI joint and right piriformis. Small amount of contrast injected for both needle tip placement. Correlate with intraoperative findings/report. Incidental incompletely visualized lower lumbar fusion screws.
--- NOTE | 2024-07-06 17:20 | XRAY ---
18 seconds of fluoroscopy was used in surgery for a right sacroiliac joint and piriformis injection.
== END 2024-07-06 16:31 | disposition home or self-care (01) ==
LOC: SDC-PAIN 14:12
PROVIDERS: ATTEND Psychiatry & Neurology Pain Medicine
DX: M46.1 Sacroiliitis, not elsewhere classified (principal); M79.18 Myalgia, other site
CPT/HCPCS: 20552; 72170; 77002; G0260; 27096; J1100; J2704; Q9966

== ENCOUNTER 2024-08-18 14:08 | Day surgery (SDC) | payer MEDICARE ==
[2024-08-18] MEDS ORDERED: Xylocaine-Mpf 2% 5 Ml Vial IJ ONE (14:09)
[2024-08-18] MEDS ORDERED: Decadron 4 MG INJ IV ONE (14:09)
[2024-08-18] MEDS ORDERED: DIPRIVAN 200 MG/20 ML IV ONE (15:57)
--- NOTE | 2024-08-18 19:36 | XRAY ---
Indication: Right C2-C4 MBB. Intraoperative fluoroscopy provided for 10 seconds. 2 digital spot images submitted for interpretation demonstrates posterior needle tips projecting over expected right C2-C4 nerve roots. Correlate with intraoperative findings/report. Incidental lower cervical fusion hardware
--- NOTE | 2024-08-19 09:07 | XRAY ---
10 seconds of fluoroscopy was used in surgery for a right C2-C4 MBB.
== END 2024-08-18 16:25 | disposition home or self-care (01) ==
LOC: SDC-PAIN 14:08
PROVIDERS: ATTEND Psychiatry & Neurology Pain Medicine
DX: M47.812 Spondylosis without myelopathy or radiculopathy, cervical region (principal)
CPT/HCPCS: 64490; 64491; 72040; 77002; J1100; J2704

== ENCOUNTER 2024-09-14 12:06 | Day surgery (SDC) | payer MEDICARE ==
[2024-09-14] MEDS ORDERED: propofoL IV ONE ×2 (13:57→14:10)
--- NOTE | 2024-09-14 15:13 | XRAY ---
Indication: Right C2-C4 MBB. Intraoperative fluoroscopy provided for 12 seconds. 2 digital spot images submitted for interpretation demonstrates posterior needle tips projecting over expected right C2-C4 nerve roots. Correlate with intraoperative findings/report. Incidental lower cervical fusion hardware.
--- NOTE | 2024-09-14 15:17 | XRAY ---
12 seconds of fluoroscopy was used in surgery for a right C2-C4 MBB.
== END 2024-09-14 14:35 | disposition home or self-care (01) ==
LOC: SDC-PAIN 12:06
PROVIDERS: ATTEND Psychiatry & Neurology Pain Medicine
DX: M47.812 Spondylosis without myelopathy or radiculopathy, cervical region (principal)
CPT/HCPCS: 64490; 64491; 72040; 77002; J2704

== ENCOUNTER 2024-10-12 06:50 | Day surgery (SDC) | payer MEDICARE ==
[2024-10-12] MEDS ORDERED: Lactated Ringers 500 ML IV ONE (07:57)
[2024-10-12] MEDS ORDERED: propofoL IV ONE (08:38)
--- NOTE | 2024-10-12 10:35 | XRAY ---
Indication: Left C2-C4 MBB. Intraoperative fluoroscopy provided for 15 seconds. 2 digital spot images submitted for interpretation demonstrates posterior needle tips projecting over expected left C2-C4 nerve roots. Correlate with intraoperative findings/report. Incidental lower cervical fusion hardware.
--- NOTE | 2024-10-12 12:02 | XRAY ---
15 seconds of fluoroscopy was used in surgery for a left C2-C4 MBB.
== END 2024-10-12 09:09 | disposition home or self-care (01) ==
LOC: SDC-PAIN 06:50
PROVIDERS: ATTEND Psychiatry & Neurology Pain Medicine
DX: M47.812 Spondylosis without myelopathy or radiculopathy, cervical region (principal)
CPT/HCPCS: 72040; 77002; J2704

== ENCOUNTER 2024-11-16 05:40 | Day surgery (SDC) | payer MEDICARE ==
[2024-11-16] MEDS ORDERED: Lactated Ringers 1,000 ML IV ONE (06:20)
[2024-11-16] MEDS ORDERED: CEFAZOLIN 2 GM/100 ML NaCl 2 GM/100 ML IVPB IV ONE (06:20)
[2024-11-16] MEDS: Transderm Scop 1.5MG Patch TOP PRN (06:29)
[2024-11-16] MEDS: TYLENOL EXTRA STRENGTH 500 MG PO ONE (06:31)
[2024-11-16] MEDS: Pepcid 20 MG PO ONE (06:31)
[2024-11-16] MEDS: celeBREX 100 MG PO ONE (06:31)
[2024-11-16] MEDS: CEFAZOLIN 2 GM/100 ML NaCl 2 GM/100 ML IVPB IV SCH (06:31)
[2024-11-16] MEDS: NEURONTIN PO ONE (06:31)
[2024-11-16] MEDS: Decadron 4 MG PO ONE (06:32)
[2024-11-16] MEDS: Lactated Ringers 1,000 ML IV SCH (06:32)
[2024-11-16 06:42] VITALS: RESP 16
[2024-11-16] MEDS ORDERED: SUBLIMAZE 100 MCG/2 ML ONE ×2 (07:12→10:31)
[2024-11-16] MEDS ORDERED: dexAMETHasone sodium phosphate ONE (07:12)
[2024-11-16] MEDS ORDERED: Xylocaine-Mpf 2% 5 Ml Vial ONE (07:12)
[2024-11-16] MEDS ORDERED: Zofran 4 MG/2 ML VIAL ONE (07:12)
[2024-11-16] MEDS ORDERED: propofoL IV ONE (07:13)
[2024-11-16] MEDS ORDERED: MARCAINE 0.25% PF/ EPI 1:200,000 ONE ×2 (08:43→09:30)
[2024-11-16] MEDS ORDERED: Hydromorphone 1 mg/ml Injection ONE (10:31)
[2024-11-16 11:13] VITALS: TEMP 97.2
[2024-11-16 11:24] VITALS: BP 137/79; PULSE 55; O2SAT 95
--- NOTE | 2024-11-18 10:35 | OP ---
SURGERY DATE/TIME: 11/16/2024 [id number] PREOPERATIVE DIAGNOSES: Torn right medial and lateral menisci, mild degenerative joint disease. POSTOPERATIVE DIAGNOSES: Torn right medial and lateral menisci, moderate degenerative joint disease. PROCEDURES: Arthroscopy of the right knee with partial medial and lateral meniscectomies; 3-compartment chondroplasty involving the medial femoral condyle, patella, trochlear groove, and lateral tibial plateau. SURGEON: Christ Maradiaga II, DO ANESTHESIA: General. DESCRIPTION OF PROCEDURE AND FINDINGS: The patient was identified, and informed consent was obtained. The patient was taken to the operative suite where she was placed into the supine position on the operating table, and a general anesthetic was administered. Once an appropriate level of anesthesia had been obtained, a tourniquet was placed high on the right thigh, and the right lower extremity was placed in the knee apple, prepped and draped in the usual sterile fashion. A standard time-out was taken. At this point, the leg was exsanguinated and the tourniquet was then elevated to 350 mmHg. A standard superomedial portal was created with an 11 blade. Trocar and cannula were placed in the joint. The joint was distended with the arthroscopic pump. An inferolateral portal was created with an 11 blade, and the arthroscope was then placed in through a cannula. An 18-gauge spinal needle identified the level for the inferomedial portal, which was also created with an 11 blade. The knee was then inspected in a systematic fashion beginning at the suprapatellar pouch, where there were no loose bodies or synovial hypertrophy. The undersurface of the patella had some significant thinning of the articular cartilage, and a good grade 3 chondromalacia changes almost to the level of grade 4 in some areas. Trochlear groove had grades 2 and 3 chondromalacia changes noted. Chondroplasty was performed with a motorized shaver. The gutters were inspected with no loose bodies or synovial hypertrophy. The scope was placed into the medial compartment where a complex tear of the posterior horn of the medial meniscus was encountered, resected with the handheld biting instruments, and shaved to a smooth transition with the shaver. Patient did have some significant chondromalacia of the medial femoral condyle which was treated with the shaver, performing a chondroplasty. The patient was noted to have significant thinning of the articular cartilage. Incidental shaving of the medial tibial plateau was accomplished for small areas of grade 2 to grade 3 chondromalacia. Intercondylar notch region was inspected, and the anterior cruciate ligament was noted to be intact without evidence of attenuation or tears. The scope was placed into the lateral compartment, where a small tear of the posterior horn of the lateral meniscus was encountered. A second degenerative tear was noted in the middle horn of the lateral meniscus and some fraying of the anterior horn. The meniscal tear was resected with the handheld biting instruments and shaved to a smooth transition with the shaver. The patient did have some chondromalacia noted on the tibial plateau of grade 2 to 3 in nature and a chondroplasty performed with the shaver. The knee was then reinspected and copiously irrigated. No further pathology identified. The instrumentation was removed. The portal sites were closed with interrupted 4-0 nylon suture. The knee was infiltrated with 30 mL of 0.25% Marcaine with epinephrine into the joint and portal sites. Adaptics, 4 x 4's, and a standard postop arthroscopy dressing applied. The patient was transferred to the cart and taken to recovery room in satisfactory condition having tolerated the procedure well.
== END 2024-11-16 11:39 | disposition home or self-care (01) ==
LOC: SDC 05:40
PROVIDERS: ATTEND Orthopaedic Surgery
DX: S83.281A Other tear of lateral meniscus, current injury, right knee, initial encounter (principal); S83.241A Other tear of medial meniscus, current injury, right knee, initial encounter; M17.11 Unilateral primary osteoarthritis, right knee; M22.41 Chondromalacia patellae, right knee
CPT/HCPCS: 29877; 29880; J0690; J1100; J1171; J2405; J2704; J3010; A9270-GY

== ENCOUNTER 2024-11-30 06:34 | Day surgery (SDC) | payer MEDICARE ==
[2024-11-30] MEDS ORDERED: dexAMETHasone sodium phosphate IJ ONE (06:35)
[2024-11-30] MEDS ORDERED: BUPIVACAINE 0.5% VIAL IJ ONE (06:35)
[2024-11-30] MEDS ORDERED: Lactated Ringers 500 ML IV ONE (07:16)
[2024-11-30] MEDS ORDERED: propofoL IV ONE (08:48)
--- NOTE | 2024-11-30 10:19 | XRAY ---
Indication: Left C2-C4 MBB. Intraoperative fluoroscopy provided for 13 seconds. 2 digital spot images submitted for interpretation demonstrates posterior needle tips projecting over expected left C2-C4 nerve roots. Correlate with intraoperative findings/report. Incidental lower cervical fusion hardware.
--- NOTE | 2024-11-30 10:26 | XRAY ---
13 seconds of fluoroscopy was used in surgery for a left C2-C4 MBB.
== END 2024-11-30 09:23 | disposition home or self-care (01) ==
LOC: SDC-PAIN 06:34
PROVIDERS: ATTEND Psychiatry & Neurology Pain Medicine
DX: M47.812 Spondylosis without myelopathy or radiculopathy, cervical region (principal)
CPT/HCPCS: 64490; 64491; 72040; J1100; J2704

== ENCOUNTER 2024-12-21 12:38 | Day surgery (SDC) | payer MEDICARE ==
[2024-12-21] MEDS ORDERED: dexAMETHasone sodium phosphate IJ ONE (12:39)
[2024-12-21] MEDS ORDERED: LIDOCAINE HCL 1% AMPUL 5 ML IJ ONE (12:39)
[2024-12-21] MEDS ORDERED: BUPIVACAINE 0.5% VIAL IJ ONE (12:39)
[2024-12-21] MEDS ORDERED: Lactated Ringers 500 ML IV ONE (14:01)
[2024-12-21] MEDS ORDERED: propofoL IV ONE (15:32)
--- NOTE | 2024-12-21 16:34 | XRAY ---
Indication: Left C2-C4 RFA. Intraoperative fluoroscopy provided for 23 seconds. 5 digital spot image submitted for interpretation demonstrates posterior needle tips projecting over expected left C2-C4 nerve roots. Correlate with intraoperative findings/report. Incidental lower cervical fusion hardware.
--- NOTE | 2024-12-22 19:24 | XRAY ---
23 seconds of fluoroscopy was used in surgery for a left C2-C4 RFA.
== END 2024-12-21 16:11 | disposition home or self-care (01) ==
LOC: SDC-PAIN 12:38
PROVIDERS: ATTEND Psychiatry & Neurology Pain Medicine
DX: M47.812 Spondylosis without myelopathy or radiculopathy, cervical region (principal)
CPT/HCPCS: 64633; 64634; 72040; J1100; J2704

== ENCOUNTER 2024-12-22 06:37 | Day surgery (SDC) | payer MEDICARE ==
[2024-12-22] MEDS ORDERED: Depo-Medrol 40 MG/ML IM ONE (06:38)
[2024-12-22] MEDS ORDERED: LIDOCAINE HCL 1% AMPUL 5 ML IJ ONE (06:38)
[2024-12-22] MEDS ORDERED: BUPIVACAINE 0.5% VIAL IJ ONE (06:38)
[2024-12-22] MEDS ORDERED: Lactated Ringers 500 ML IV ONE (06:49)
[2024-12-22] MEDS ORDERED: propofoL IV ONE ×2 (08:24)
--- NOTE | 2024-12-22 19:24 | XRAY ---
19 seconds of fluoroscopy was used in surgery for a right C2-C4 RFA.
--- NOTE | 2024-12-22 19:31 | XRAY ---
Indication: Right C2-C4 RFA. Intraoperative fluoroscopy provided for 19 seconds. 3 digital spot image submitted for interpretation demonstrates posterior needle tips projecting over expected right C2-C4 nerve roots. Correlate with intraoperative findings/report. Incidental lower cervical fusion hardware.
== END 2024-12-22 08:57 | disposition home or self-care (01) ==
LOC: SDC-PAIN 06:37
PROVIDERS: ATTEND Psychiatry & Neurology Pain Medicine
DX: M47.812 Spondylosis without myelopathy or radiculopathy, cervical region (principal)
CPT/HCPCS: 64633; 64634; 72040; J2704

== ENCOUNTER 2025-03-31 05:36 | Day surgery (SDC) | payer MEDICARE ==
[2025-03-31] MEDS ORDERED: CEFAZOLIN SODIUM ONE (06:16)
[2025-03-31] MEDS: Lactated Ringers 1,000 ML IV ONE (06:17)
[2025-03-31] MEDS: TYLENOL EXTRA STRENGTH 500 MG PO ONE (06:18)
[2025-03-31] MEDS: NEURONTIN PO ONE (06:18)
[2025-03-31] MEDS: celeBREX 100 MG PO ONE (06:18)
[2025-03-31] MEDS: Decadron 4 MG PO ONE (06:18)
[2025-03-31] MEDS ORDERED: TRANEXAMIC 1,000 MG/100ML-NACL 1,000 MG/100 ML PIGGYBACK IV ONE ×2 (06:41→08:02)
[2025-03-31] MEDS: TRANEXAMIC 1,000 MG/100ML-NACL 1,000 MG/100 ML PIGGYBACK IV ONE (06:46)
[2025-03-31] MEDS ORDERED: Naropin 0.5% 30 ML VIAL ONE (07:41)
[2025-03-31] MEDS ORDERED: Versed 2 MG/2 ML Injection ONE (07:46)
[2025-03-31] MEDS ORDERED: Propofol 1000 mg/100 ml Bottle 100 ML IV ONE (08:02)
--- NOTE | 2025-03-31 10:31 | XRAY ---
Indication: Postop exam. Comparison: Outside exam from [facility] dated July 31, 2024 AP/cross-table lateral right knee now status post total knee arthroplasty with intact prosthesis and postoperative soft tissue swelling/emphysema. Again osteopenia. No other bony, articular, or soft tissue abnormalities.
[2025-03-31] MEDS ORDERED: ZOFRAN ODT 4 MG PO PRN (11:23)
[2025-03-31] MEDS ORDERED: NON-FORMULARY ITEM (Ondansetron 4 MG Tab.Rapdis) PO PRN (11:27)
[2025-03-31] MEDS ORDERED: Nitrostat 0.4 MG Tablet SL PRN (11:27)
[2025-03-31] MEDS ORDERED: Depo-Medrol 80 MG/ML IJ SCH (11:30)
[2025-03-31] MEDS ORDERED: Zanaflex 4 MG PO PRN (11:41)
[2025-03-31] MEDS: Cymbalta 30 MG Capsule PO SCH (12:34)
[2025-03-31] MEDS: LYRICA 150MG PO SCH (12:34)
[2025-03-31] MEDS: ZOCOR 20MG PO SCH ×2 (12:46→21:49)
[2025-03-31] MEDS: Hydromorphone 1 mg/ml Injection IV PRN (13:05)
[2025-03-31] MEDS: CEFAZOLIN 2 GM/100 ML NaCl 2 GM/100 ML IVPB IV SCH (14:47)
[2025-03-31] MEDS: NORCO 7.5/325 MG TAB PO PRN (14:50)
[2025-03-31] MEDS: Carafate 1 GM PO SCH (16:58)
[2025-03-31] MEDS: Protonix 40MG Tablet PO SCH (21:49)
[2025-03-31] MEDS: DESYREL 50 MG PO SCH (21:55)
[2025-03-31] MEDS ORDERED: ANASPAZ 0.125 MG ONE (22:57)
[2025-03-31] MEDS: ANASPAZ 0.125 MG PO PRN (23:04)
[2025-03-31 23:44] VITALS: RESP 18
[2025-04-01 04:18] VITALS: TEMP 98.1
[2025-04-01 06:22] LABS: Hematocrit 32.4 % (34.1-44.9); Hemoglobin 10.2 g/dL (11.2-15.7); Mean Corpuscular Hemoglobin 30.1 pg (25.6-32.2); Mean Corpuscular Hgb Concent. 31.5 g/dL (32.2-35.5); Platelet Count 182 x10^3/uL (182-369); Red Blood Count 3.39 x10^6/uL (3.93-5.22); White Blood Count 12.3 x10^3/uL (3.98-10.04)
[2025-04-01 07:30] VITALS: BP 132/63; PULSE 59; O2SAT 93
[2025-04-01] MEDS: Toprol Xl 50 MG PO SCH (07:38)
[2025-04-01] MEDS: SYNTHROID 112 MCG PO SCH (07:42)
--- NOTE | 2025-04-03 09:19 | OP ---
SURGERY DATE/TIME: 03/31/2025 [id number] PREOPERATIVE DIAGNOSIS: Severe, advanced osteoarthritis, right knee. POSTOPERATIVE DIAGNOSIS: Severe, advanced osteoarthritis, right knee. PROCEDURE: Right total knee replacement arthroplasty utilizing the [employer] instrumentation, a size 6 femoral component press-fit, a size D tibial component cemented, a 12 mm tibial polyethylene bearing tray, and an 8 x 25 single-peg poly patella cemented. SURGEON: Christ Maradiaga II, DO. ANESTHESIA: Spinal with block for postop pain control. DESCRIPTION OF PROCEDURE AND FINDINGS: The patient was identified, and informed consent was obtained. The patient was taken to the operative suite and placed in a supine position on the operating table where the spinal anesthetic was administered. The block had been administered in the preop holding area. The right lower extremity was then prepped and draped in the usual sterile fashion. The foot was placed into the foot-holding boot for the knee apple. A standard time-out was taken. At this point, the leg was exsanguinated and the tourniquet elevated to 350 mmHg. A standard midline incision was accomplished with the knee in a flexed position. The skin was incised and dissection was carried out through the subcutaneous tissue. A standard medial parapatellar incision was then accomplished. Upon entering the joint, grade 1 synovial fluid was encountered. The patient was noted to have skip areas of hard, eburnated bone on both the medial and lateral femoral condyles, as well as on the medial tibial plateau and patella. At this point, a portion of the infrapatellar fat pad, medial and lateral menisci, and anterior cruciate ligament were excised for visualization. At this point then, the Z-retractors were positioned medially and laterally, and the knee was flexed further and the femoral jig was then applied and held with its pins. Following this, the distal cutting block was placed over the pins and the distal femoral cut was made. The 4-in-1 cutting block was then applied, and the anterior, posterior, and chamfer cuts were then accomplished. At this point then, our attention was turned to the tibial side where a posterior retractor was placed. The jig for the tibia was then placed and held with its pins. Following this, the tibial cutting block was applied and a proximal wafer of tibia removed. The wafer of bone was removed and at this point then, trial reduction showed a size D component to be the appropriate size and appropriate rotation. This was then held with the pins. Trial reduction with the trial femur and tibia showed that a size 12 poly was the appropriate size to get good soft tissue balance in all planes of motion. Attention was turned to the patella where the patellar button was milled and an 8 x 25 all poly single-peg patella was then inserted where the patella had been milled. Excellent tracking was noted. At this point, the trial instrumentation was removed. The joint was copiously irrigated with the pulsed filament tester and dried. The cement was vacuum mixed and then pressed into the interstices of the tibia with the cement gun. Tibial component was then cemented into position. Excess cement was removed during the curing process. The femoral component was press-fit into position followed by reapplication of the 12 mm polyethylene trial tray. The knee was held in extension during the curing process. The patellar button was then cemented into position as well and held with its clamp. Once the cement had fully cured and all excess cement had been removed, the knee was again placed through a range of motion. It was deemed that the size 12 poly was the appropriate size to give good soft tissue balance from full extension to flexion of greater than 135 degrees. At this point then, the trial tray was removed. The joint was irrigated again with the pulse filament tester. The tibial tray was then inserted and snapped into position. The knee was irrigated and closed with #2 Stratafix, 2-0 Monocryl, and 3-0 subcuticular Stratafix augmented with Dermabond. An Aquacel dressing was then applied. The patient was then transferred to the bed and taken to the recovery room in satisfactory condition, having tolerated the procedure well.
== END 2025-04-01 10:18 | disposition home or self-care (01) ==
LOC: SDC 05:36 → MED SURG 10:47 → SDC 04-01 10:18
PROVIDERS: ATTEND Orthopaedic Surgery
DX: M17.11 Unilateral primary osteoarthritis, right knee (principal); M25.561 Pain in right knee
CPT/HCPCS: 01402; 27447; 36415; 64447; 64450; 73560; 76937; 76942; 85027; 97116; 97161; 97530; C1713; C1776